=== PATIENT | male | born 1980 | race Caucasian/White ===

== ENCOUNTER 2019-10-10 16:28 | Outpatient (CLI) | payer BC | END 2019-10-10 16:29 | disposition critical access hospital (66) | LOC: EMS 16:28 | PROVIDERS: ATTEND Surgery | DX: R10.13 Epigastric pain (principal); R11.10 Vomiting, unspecified | CPT/HCPCS: A0425; A0427 ==

== ENCOUNTER 2019-10-10 16:48 | Emergency (ER) | payer BC ==
[2019-10-10] MEDS ORDERED: HALOPERIDOL 5 MG/ML VIAL IVP STA (17:06)
[2019-10-10] MEDS ORDERED: SODIUM CHLORIDE 0.9% 1,000 ML IV ONE (17:06)
[2019-10-10] MEDS ORDERED: PANTOPRAZOLE 40 MG VIAL IVP STA (17:07)
--- NOTE | 2019-10-10 17:10 | ED Physician Documentation ---
PD HPI ABD PAIN - Stated complaint Stated Complaint: ABD PX - Chief complaint Chief Complaint: Abd Pain - History obtained from History obtained from: Patient, EMS - History of Present Illness Timing - onset: How many hours ago (2) Timing - duration: Hours (2) Timing - details: Abrupt onset Pain level max: 8 Pain level now: 8 Quality: Aching, Pain Location: Epigastric Radiation: No: Chest, , Lower back, Left flank, Left shoulder, Right flank, Right shoulder, Upper back Improved by: Vomiting Worsened by: Eating Associated symptoms: Nausea, Vomiting, Diarrhea (States has had diarrhea for a few days). No: Fever, Hematemesis, Constipation, Melena, Hematochezia, Dysuria, Hematuria, Chest pain Similar symptoms before: Diagnosis (Patient states that he has had ongoing abdominal pain and vomiting issues, initially it was thought to be secondary to his appendix or gallbladder. Both of these were removed in 2018. He then stopped drinking approximately 6 months ago which does seem to have helped the problem. He does use marijuana several times per week. No fevers. No recent travel. No recent antibiotics. He is diabetic. Blood sugar was 200 with EMS) Recently seen: Not recently seen Review of Systems Constitutional: denies: Fever, Chills Throat: denies: Sore throat Cardiac: denies: Chest pain / pressure Respiratory: denies: Cough Skin: denies: Rash Musculoskeletal: denies: Neck pain, Back pain Neurologic: denies: Headache PD PAST MEDICAL HISTORY - Past Medical History Cardiovascular: Hypertension, High cholesterol Respiratory: None Neuro: None Endocrine/Autoimmune: Type 2 diabetes GI: GERD : None Psych: Depression, Anxiety, Post traumatic stress disorder Musculoskeletal: None Derm: None - Past Surgical History Past Surgical History: Yes General: Cholecystectomy, Appendectomy - Present Medications Home Medications: Ambulatory Orders Medication Instructions Recorded Confirmed Cholecalciferol [Vitamin D3] 2,000 unit ORAL DAILY 10/10/19 10/10/19 FLUoxetine [PROzac] 50 mg ORAL DAILY 10/10/19 10/10/19 Insulin Glargine [Lantus Solostar] 50 units SQ DAILY 10/10/19 10/10/19 - Allergies Allergies/Adverse Reactions: Allergies Allergy/AdvReac Type Severity Reaction Status Date / Time No Known Drug Allergies Allergy Verified 10/10/19 16:51 - Social History Does the pt smoke?: No Smoking Status: Former smoker Does the pt drink ETOH?: No Does the pt have substance abuse?: Yes Substance Use and Type: Marijuana - Immunizations Immunizations are current?: Yes - POLST Patient has POLST: No PD ED PE NORMAL - Vitals Vital signs reviewed: Yes - General General: Alert and oriented X 3, No acute distress, Well developed/nourished - HEENT HEENT: PERRL, Moist mucous membranes - Neck Neck: Supple, no meningeal sign - Cardiac Cardiac: RRR, Strong equal pulses - Respiratory Respiratory: No respiratory distress, Clear bilaterally - Abdomen Abdomen: Soft, Non distended, Other (Tender to palpation epigastric without peritoneal signs) - Back Back: No CVA TTP, No spinal TTP - Derm Derm: Warm and dry - Extremities Extremities: No edema - Neuro Neuro: Alert and oriented X 3 - Psych Psych: Normal mood, Normal affect Results - Vitals Vitals: Vital Signs - 24 hr 10/10/19 10/10/19 10/10/19 16:55 17:01 18:10 Temperature 36.7 C Heart Rate 105 H 109 H 101 H Respiratory 14 18 20 Rate Blood Pressure 150/91 H 137/107 H 136/97 H O2 Saturation 100 100 100 Oxygen O2 Source Room air - Labs Labs: Laboratory Tests 10/10/19 10/10/19 10/10/19 17:15 17:15 17:15 WBC 10.6 RBC 5.65 Hgb 16.1 Hct 46.7 MCV 82.7 MCH 28.5 MCHC 34.5 RDW 11.9 L Plt Count 386 MPV 9.3 Neut # (Auto) 9.1 H Lymph # (Auto) 0.9 L [place] # (Auto) 0.5 Eos # (Auto) 0.0 Baso # (Auto) 0.0 Absolute Nucleated RBC 0.00 Nucleated RBC % 0.0 VBG pH 7.405 VBG pCO2 41.5 VBG pO2 23.2 L VBG HCO3 25.4 VBG Total CO2 26.7 VBG O2 Saturation 45.3 L VBG Base Excess 0.6 Sodium 137 Potassium 3.1 L Chloride 96 L Carbon Dioxide 24 Anion Gap 17.0 H BUN 10 Creatinine 0.9 Estimated GFR (MDRD) 94 Glucose 225 H Calcium 8.9 Total Bilirubin 1.4 H AST 28 ALT 27 Alkaline Phosphatase 100 Total Protein 8.3 H Albumin 4.5 Globulin 3.8 Albumin/Globulin Ratio 1.2 Lipase 32 Serum Ketones NEGATIVE PD MEDICAL DECISION MAKING - ED course Complexity details: reviewed results, re-evaluated patient, considered differential, d/w patient ED course: Patient given Haldol and IV fluids. Symptoms resolved. Tolerating p.o. without difficulty. Likely cannabinoid induced hyperemesis. Counseled to stop using marijuana. Patient counseled regarding signs and symptoms for which I believe and urgent re-evaluation would be necessary. Patient with good understanding of and agreement to plan and is comfortable going home at this time This document was made in part using voice recognition software. While efforts are made to proofread this document, sound alike and grammatical errors may occur. Departure - Departure Disposition: 01 Home, Self Care Clinical Impression: Cannabinoid hyperemesis syndrome Vomiting Qualifiers: Vomiting type: unspecified Vomiting Intractability: non-intractable Nausea presence: without nausea Qualified Code(s): R11.11 - Vomiting without nausea Condition: Good Instructions: ED Nausea Vomiting Follow-Up: your,doctor in 1 week [Other] Comments: Please follow-up with your doctor for further care. This could be due to a syndrome called cannabinoid induced hyperemesis. You should refrain from using any marijuana for at least the next 4 to 6 weeks and see if this helps your symptoms. Discharge Date/Time: 10/10/19 18:21
[2019-10-10 17:25] LABS: BASOPHILS % (AUTO) 0.3 %; EOSINOPHILS % (AUTO) 0.3 %; HGB - HEMOGLOBIN 16.1 g/dL (14.0-18.0); LYMPHOCYTES # (AUTO) 0.9 10^3/uL (1.5-3.5); LYMPHOCYTES % (AUTO) 8.7 %; MEAN CORPUSCULAR HEMOGLOBIN 28.5 pg (27.0-31.0); MEAN CORPUSCULAR HGB CONC 34.5 g/dL (32.0-36.0); MEAN CORPUSCULAR VOLUME 82.7 fL (80.0-94.0); MEAN PLATELET VOLUME 9.3 fL (7.4-11.4); MONOCYTES # (AUTO) 0.5 10^3/uL (0.0-1.0); MONOCYTES % (AUTO) 4.5 %; NEUTROPHILS # (AUTO) 9.1 10^3/uL (1.5-6.6); NEUTROPHILS % (AUTO) 85.6 %; PLT - PLATELET COUNT 386 10^3/uL (130-450); RED BLOOD COUNT 5.65 10^6/uL (4.70-6.10); RED CELL DISTRIBUTION WIDTH 11.9 % (12.0-15.0); WHITE BLOOD COUNT 10.6 x10^3/uL (4.8-10.8)
[2019-10-10 17:28] LABS: VBG BASE EXCESS 0.6 mmol/L (-2 - +2); VBG PCO2 41.5 mmHg (41-51); VBG PH 7.405 (7.31-7.41); VBG PO2 23.2 mmHg (25-47); VBG TOTAL CO2 26.7 mmol/L (24-29)
[2019-10-10 17:38] LABS: ALBUMIN 4.5 g/dL (3.2-5.5); ALBUMIN/GLOBULIN RATIO 1.2 (1.0-2.2); ALKALINE PHOSPHATASE 100 IU/L (42-121); ALT ALANINE AMINOTRANSFERASE 27 IU/L (10-60); AST ASPARTATE AMINOTRANSFERASE 28 IU/L (10-42); BILIRUBIN,TOTAL 1.4 mg/dL (0.2-1.0); BUN - BLOOD UREA NITROGEN 10 mg/dL (6-20); CALCIUM 8.9 mg/dL (8.5-10.3); CARBON DIOXIDE - CO2 24 mmol/L (21-32); CHLORIDE 96 mmol/L (101-111); CREATININE 0.9 mg/dL (0.6-1.2); GFR - MDRD 94 (>89); GLUCOSE 225 mg/dL (70-100); LIPASE 32 U/L (22-51); SODIUM 137 mmol/L (135-145); TOTAL PROTEIN 8.3 g/dL (6.7-8.2)
[2019-10-10 17:45] LABS: KETONES, SERUM (ACETEST) NEGATIVE (NEGATIVE)
[2019-10-10 18:11] VITALS: BP 136/97
== END 2019-10-10 18:21 | disposition home or self-care (01) ==
LOC: ED 16:48
DX: F12.188 Cannabis abuse with other cannabis-induced disorder (principal); R11.11 Vomiting without nausea; I10 Essential (primary) hypertension; E11.9 Type 2 diabetes mellitus without complications; Z79.4 Long term (current) use of insulin; Z87.891 Personal history of nicotine dependence
CPT/HCPCS: 36415; 80053; 82009; 82803; 83690; 85025; 96361; 96374; 99284

== ENCOUNTER 2020-01-10 17:11 | Outpatient (CLI) | payer BC | END 2020-01-10 17:12 | disposition critical access hospital (66) | LOC: EMS 17:11 | PROVIDERS: ATTEND Surgery | DX: R10.30 Lower abdominal pain, unspecified (principal); R11.2 Nausea with vomiting, unspecified; R19.7 Diarrhea, unspecified | CPT/HCPCS: A0425; A0427 ==

== ENCOUNTER 2020-01-10 17:29 | Emergency (ER) | payer BC ==
[2020-01-10] MEDS ORDERED: SODIUM CHLORIDE 0.9% 1,000 ML IV ONE (17:41)
[2020-01-10] MEDS ORDERED: diphenhydrAMINE INJ 50 MG/ML VIAL IVP STA (17:41)
[2020-01-10] MEDS ORDERED: HALOPERIDOL 5 MG/ML VIAL IVP STA (17:41)
--- NOTE | 2020-01-10 17:46 | ED Physician Documentation ---
PD HPI ABD PAIN - Stated complaint Stated Complaint: ABD PAIN - Chief complaint Chief Complaint: Abd Pain - History obtained from History obtained from: Patient - History of Present Illness Timing - onset: Today Timing - duration: Days (1) Timing - details: Gradual onset Pain level max: 8 Pain level now: 8 Quality: Aching, Pain Location: Epigastric Radiation: No: Chest, , Lower back, Left flank, Left shoulder, Right flank, Right shoulder, Upper back Improved by: Other (Nothing) Worsened by: Eating Associated symptoms: Nausea, Vomiting. No: Fever, Hematemesis, Diarrhea, Constipation, Melena, Hematochezia, Dysuria Recently seen: Not recently seen - Additional information Additional information: Patient states that he uses marijuana several times a day. No fever. No recent travel. No recent antibiotics. Review of Systems Ten Systems: 10 systems reviewed and negative Constitutional: denies: Fever, Chills Respiratory: denies: Cough GI: denies: Hematemesis, Bloody / black stool Skin: denies: Rash Musculoskeletal: denies: Neck pain, Back pain Neurologic: denies: Headache PD PAST MEDICAL HISTORY - Past Medical History Cardiovascular: Hypertension, High cholesterol Respiratory: None Neuro: None Endocrine/Autoimmune: Type 2 diabetes GI: GERD : None Psych: Depression, Anxiety, Post traumatic stress disorder Musculoskeletal: None Derm: None - Past Surgical History Past Surgical History: Yes General: Cholecystectomy, Appendectomy - Present Medications Home Medications: Ambulatory Orders Medication Instructions Recorded Confirmed Cholecalciferol [Vitamin D3] 2,000 unit ORAL DAILY 10/10/19 10/10/19 FLUoxetine [PROzac] 50 mg ORAL DAILY 10/10/19 10/10/19 Insulin Glargine [Lantus Solostar] 50 units SQ DAILY 10/10/19 10/10/19 Promethazine [Phenergan] 25 mg PO Q6H PRN #10 tab 01/10/20 - Allergies Allergies/Adverse Reactions: Allergies Allergy/AdvReac Type Severity Reaction Status Date / Time No Known Drug Allergies Allergy Verified 10/10/19 16:51 - Social History Does the pt smoke?: No Smoking Status: Former smoker Does the pt drink ETOH?: No Does the pt have substance abuse?: Yes - Immunizations Immunizations are current?: Yes - POLST Patient has POLST: No PD ED PE NORMAL - Vitals Vital signs reviewed: Yes - General General: Alert and oriented X 3, No acute distress, Well developed/nourished - HEENT HEENT: Moist mucous membranes - Neck Neck: Supple, no meningeal sign - Cardiac Cardiac: RRR, Strong equal pulses - Respiratory Respiratory: No respiratory distress, Clear bilaterally - Abdomen Abdomen: Soft, Non tender, Non distended - Back Back: No CVA TTP - Derm Derm: Warm and dry - Extremities Extremities: No edema - Neuro Neuro: Alert and oriented X 3 - Psych Psych: Normal mood, Normal affect Results - Vitals Vitals: Vital Signs - 24 hr 01/10/20 01/10/20 01/10/20 17:34 18:55 19:13 Temperature 36.1 C L Heart Rate 108 H 96 88 Respiratory 18 16 16 Rate Blood Pressure 137/105 H 142/93 H 143/88 H O2 Saturation 100 96 98 Oxygen O2 Source Room air - Labs Labs: Laboratory Tests 01/10/20 01/10/20 01/10/20 17:35 17:35 18:44 WBC 13.1 H RBC 5.30 Hgb 14.6 Hct 43.6 MCV 82.3 MCH 27.5 MCHC 33.5 RDW 12.6 Plt Count 408 MPV 9.4 Neut # (Auto) 9.9 H Lymph # (Auto) 2.1 [place] # (Auto) 0.7 Eos # (Auto) 0.2 Baso # (Auto) 0.1 Absolute Nucleated RBC 0.00 Nucleated RBC % 0.0 Sodium 134 L Potassium 2.9 L Chloride 95 L Carbon Dioxide 26 Anion Gap 13.0 BUN 11 Creatinine 0.7 Estimated GFR (MDRD) 126 Glucose 209 H Calcium 8.7 Total Bilirubin 1.0 AST 26 ALT 22 Alkaline Phosphatase 106 Total Protein 7.9 Albumin 4.1 Globulin 3.8 Albumin/Globulin Ratio 1.1 Lipase 162 H Urine Color YELLOW Urine Clarity CLEAR Urine pH 7.5 Ur Specific [place] 1.015 Urine Protein NEGATIVE Urine Glucose (UA) NEGATIVE Urine Ketones 40 H Urine Occult Blood NEGATIVE Urine Nitrite NEGATIVE Urine Bilirubin NEGATIVE Urine Urobilinogen 0.2 (NORMAL) Ur Leukocyte Esterase NEGATIVE Ur Microscopic Review NOT INDICATED Urine Culture Comments NOT INDICATED PD MEDICAL DECISION MAKING - ED course Complexity details: reviewed results, re-evaluated patient, considered differential, d/w patient ED course: Patient symptoms resolved with Haldol, Benadryl, and IV fluids. Feels much better. Mild elevation of his lipase. Does not drink alcohol. Seems to be a case of cannabinoid induced hyperemesis. Will prescribe Phenergan for home. Counseled to avoid cannabis. Patient is well-appearing, nontoxic. Afebrile. No DKA. Patient counseled regarding signs and symptoms for which I believe and urgent re-evaluation would be necessary. Patient with good understanding of and agreement to plan and is comfortable going home at this time This document was made in part using voice recognition software. While efforts are made to proofread this document, sound alike and grammatical errors may o ccur. Departure - Departure Disposition: Home, Self Care Clinical Impression: Cannabinoid hyperemesis syndrome Vomiting Qualifiers: Vomiting type: unspecified Vomiting Intractability: non-intractable Nausea presence: with nausea Qualified Code(s): R11.2 - Nausea with vomiting, unspecified Condition: Good Instructions: ED Abdominal Pain Unkn Cause, ED Nausea Vomiting Follow-Up: Your,doctor in 1 week [Other] Prescriptions: Promethazine [Phenergan] 25 mg PO Q6H PRN #10 tab PRN Reason: Nausea / Vomiting Comments: Drink plenty of fluids at home. Return if you worsen. You should try refraining from marijuana use. Do not drive or operate heavy machinery while taking the Phenergan. Discharge Date/Time: 01/10/20 19:13
[2020-01-10 17:48] LABS: BASOPHILS # (AUTO) 0.1 10^3/uL (0.0-0.1); BASOPHILS % (AUTO) 0.4 %; EOSINOPHILS # (AUTO) 0.2 10^3/uL (0.0-0.7); EOSINOPHILS % (AUTO) 1.3 %; HGB - HEMOGLOBIN 14.6 g/dL (14.0-18.0); LYMPHOCYTES # (AUTO) 2.1 10^3/uL (1.5-3.5); LYMPHOCYTES % (AUTO) 16.4 %; MEAN CORPUSCULAR HEMOGLOBIN 27.5 pg (27.0-31.0); MEAN CORPUSCULAR HGB CONC 33.5 g/dL (32.0-36.0); MEAN CORPUSCULAR VOLUME 82.3 fL (80.0-94.0); MEAN PLATELET VOLUME 9.4 fL (7.4-11.4); MONOCYTES # (AUTO) 0.7 10^3/uL (0.0-1.0); MONOCYTES % (AUTO) 5.4 %; NEUTROPHILS # (AUTO) 9.9 10^3/uL (1.5-6.6); NEUTROPHILS % (AUTO) 75.9 %; PLT - PLATELET COUNT 408 10^3/uL (130-450); RED CELL DISTRIBUTION WIDTH 12.6 % (12.0-15.0); WHITE BLOOD COUNT 13.1 x10^3/uL (4.8-10.8)
[2020-01-10 18:01] LABS: ALBUMIN 4.1 g/dL (3.2-5.5); ALBUMIN/GLOBULIN RATIO 1.1 (1.0-2.2); CALCIUM 8.7 mg/dL (8.5-10.3); CREATININE 0.7 mg/dL (0.6-1.2); TOTAL PROTEIN 7.9 g/dL (6.7-8.2)
[2020-01-10 18:54] LABS: BILIRUBIN,URINE NEGATIVE (NEGATIVE); GLUCOSE, URINE (UA) NEGATIVE (NEGATIVE); KETONES,URINE (UA) 40 mg/dL (NEGATIVE); LEUKOCYTE ESTERASE, URINE NEGATIVE (NEGATIVE); NITRITE,URINE NEGATIVE (NEGATIVE); OCCULT BLOOD,URINE NEGATIVE (NEGATIVE); PH,URINE 7.5 PH (5.0-7.5); PROTEIN,URINE NEGATIVE (NEGATIVE); UROBILINOGEN,URINE 0.2 (NORMAL) E.U./dL (NORMAL)
[2020-01-10 18:58] LABS: CLARITY,URINE CLEAR (CLEAR)
[2020-01-10 19:17] VITALS: BP 143/88
== END 2020-01-10 19:13 | disposition home or self-care (01) ==
LOC: EDUNIT# → ED 17:29
DX: R11.2 Nausea with vomiting, unspecified (principal); I10 Essential (primary) hypertension; E11.9 Type 2 diabetes mellitus without complications; Z87.891 Personal history of nicotine dependence
CPT/HCPCS: 36415; 80053; 81003; 83690; 85025; 96361; 96374; 99283; 99284; J1200; 81001; 87086

== ENCOUNTER 2020-01-13 11:07 | Outpatient (CLI) | payer BC | END 2020-01-13 11:08 | disposition critical access hospital (66) | LOC: EMS 11:07 | PROVIDERS: ATTEND Surgery | DX: R10.32 Left lower quadrant pain (principal); R11.2 Nausea with vomiting, unspecified; R61 Generalized hyperhidrosis | CPT/HCPCS: A0425; A0427 ==

== ENCOUNTER 2020-01-13 11:26 | Emergency (ER) | payer BC ==
[2020-01-13] MEDS ORDERED: HYDROmorphone 1 MG/ML CARPUJECT IVP STA (11:41)
[2020-01-13] MEDS ORDERED: PROMETHAZINE INJ 25 MG in SODIUM CHLORIDE 0.9% 50 ML IV STA (11:41)
[2020-01-13] MEDS ORDERED: IOVERSOL 320 100 ML VIAL IVP ONE ×2 (11:45→13:05)
[2020-01-13] MEDS ORDERED: SODIUM CHLORIDE 0.9% 1,000 ML IV ONE ×2 (11:53→13:08)
--- NOTE | 2020-01-13 11:55 | ED Physician Documentation ---
PD HPI ABD PAIN - Stated complaint Stated Complaint: ABD PAIN - Chief complaint Chief Complaint: Abd Pain - History obtained from History obtained from: Patient - History of Present Illness Timing - onset: How many hours ago (1-2) Timing - details: Abrupt onset Pain level max: 9 Pain level now: 9 Quality: Sharp, Stabbing Location: RUQ, Epigastric, LUQ Associated symptoms: Nausea, Vomiting. No: Diarrhea, Constipation, Melena, Hematochezia, Dysuria, Hematuria, Chest pain Similar symptoms before: No diagnosis (associated with cannibus use.) Recently seen: Emergency Dept - Additional information Additional information: pt BIB EMS for acute onset abdominal pain that started approximately 1 hr ago. The pt states this is pain is different than what he was seen for a couple days ago here at the ER. the patient admits to smoking marijuana several times today. He is only smoking once today. He does admit to smoking maybe yesterday. His last food intake was last night. Review of Systems Constitutional: denies: Fever, Chills Eyes: reports: Reviewed and negative Ears: reports: Reviewed and negative Nose: reports: Reviewed and negative Cardiac: reports: Reviewed and negative Respiratory: reports: Reviewed and negative GI: reports: Abdominal Pain, Nausea, Vomiting. denies: Abdominal Swelling, Constipation, Diarrhea, Hematemesis, Bloody / black stool : denies: Dysuria, Hematuria Musculoskeletal: reports: Reviewed and negative Neurologic: reports: Reviewed and negative PD PAST MEDICAL HISTORY - Past Medical History Cardiovascular: Hypertension, High cholesterol Respiratory: None Neuro: None Endocrine/Autoimmune: Type 2 diabetes GI: GERD : None Psych: Depression, Anxiety, Post traumatic stress disorder Musculoskeletal: None Derm: None - Past Surgical History Past Surgical History: Yes General: Cholecystectomy, Appendectomy - Present Medications Home Medications: Ambulatory Orders Medication Instructions Recorded Confirmed Cholecalciferol [Vitamin D3] 2,000 unit ORAL DAILY 10/10/19 10/10/19 FLUoxetine [PROzac] 50 mg ORAL DAILY 10/10/19 10/10/19 Insulin Glargine [Lantus Solostar] 50 units SQ DAILY 10/10/19 10/10/19 Promethazine [Phenergan] 25 mg PO Q6H PRN #10 tab 01/10/20 - Allergies Allergies/Adverse Reactions: Allergies Allergy/AdvReac Type Severity Reaction Status Date / Time No Known Drug Allergies Allergy Verified 01/13/20 11:37 - Social History Does the pt smoke?: No Smoking Status: Former smoker Does the pt drink ETOH?: No Does the pt have substance abuse?: Yes - Immunizations Immunizations are current?: Yes - POLST Patient has POLST: No PD ED PE NORMAL - General General: Alert and oriented X 3, Well developed/nourished - HEENT HEENT: Atraumatic, PERRL, EOMI, Moist mucous membranes - Neck Neck: Supple, no meningeal sign, No adenopathy - Cardiac Cardiac: RRR, No murmur - Respiratory Respiratory: No respiratory distress, Clear bilaterally - Male Male : Deferred - Back Back: No CVA TTP - Derm Derm: Normal color, No rash - Neuro Neuro: Alert and oriented X 3 Eye Opening: Spontaneous Motor: Obeys Commands Verbal: Oriented GCS Score: 15 PD ED PE EXPANDED - Abdomen Abdomen: Decreased BS, Tender to palpation (RUQ, LUQ, epigastric ), Guarding, RUQ, Epigastric, LUQ. No: Hepatomegaly - Derm Derm: Diaphoretic Results - Vitals Vitals: Vital Signs - 24 hr 01/13/20 01/13/20 11:27 13:36 Temperature 35.9 C L Heart Rate 89 99 Respiratory 28 H 24 Rate Blood Pressure 153/88 H 130/93 H O2 Saturation 100 95 Oxygen O2 Source Room air - EKG (time done) No standard instances Rate: Rate (enter#) (86) Rhythm: NSR [place]: Normal Intervals: Normal CT QRS: Normal Ischemia: Normal ST segments Computer interpretation: Agree with computer - Labs Labs: Laboratory Tests 01/13/20 01/13/20 01/13/20 12:03 12:03 12:03 WBC 15.1 H RBC 5.56 Hgb 15.9 Hct 46.9 MCV 84.4 MCH 28.6 MCHC 33.9 RDW 12.8 Plt Count 418 MPV 9.2 Neut # (Auto) 12.0 H Lymph # (Auto) 2.0 [place] # (Auto) 0.8 Eos # (Auto) 0.1 Baso # (Auto) 0.1 Absolute Nucleated RBC 0.00 Nucleated RBC % 0.0 PT 11.1 INR 1.0 Sodium 138 Potassium 3.2 L Chloride 102 Carbon Dioxide 23 Anion Gap 13.0 BUN 10 Creatinine 0.8 Estimated GFR (MDRD) 108 Glucose 202 H Lactic Acid Calcium 9.2 Total Bilirubin 0.8 AST 30 ALT 23 Alkaline Phosphatase 99 Total Protein 8.2 Albumin 4.4 Globulin 3.8 Albumin/Globulin Ratio 1.2 Amylase 108 H Lipase 41 Urine Color Urine Clarity Urine pH Ur Specific [place] Urine Protein Urine Glucose (UA) Urine Ketones Urine Occult Blood Urine Nitrite Urine Bilirubin Urine Urobilinogen Ur Leukocyte Esterase Ur Microscopic Review Urine Culture Comments Urine Opiates Screen Ur Oxycodone Screen Urine Methadone Screen Ur Propoxyphene Screen Ur Barbiturates Screen Ur Tricyclics Screen Ur Phencyclidine Scrn Ur Amphetamine Screen U Methamphetamines Scrn U Benzodiazepines Scrn Urine Cocaine Screen U Cannabinoids Screen 01/13/20 01/13/20 01/13/20 12:03 13:54 14:15 WBC RBC Hgb Hct MCV MCH MCHC RDW Plt Count MPV Neut # (Auto) Lymph # (Auto) [place] # (Auto) Eos # (Auto) Baso # (Auto) Absolute Nucleated RBC Nucleated RBC % PT INR Sodium Potassium Chloride Carbon Dioxide Anion Gap BUN Creatinine Estimated GFR (MDRD) Glucose Lactic Acid 3.7 H* 1.5 Calcium Total Bilirubin AST ALT Alkaline Phosphatase Total Protein Albumin Globulin Albumin/Globulin Ratio Amylase Lipase Urine Color YELLOW Urine Clarity CLEAR Urine pH 8.0 H Ur Specific [place] 1.010 Urine Protein NEGATIVE Urine Glucose (UA) NEGATIVE Urine Ketones 15 H Urine Occult Blood NEGATIVE Urine Nitrite NEGATIVE Urine Bilirubin NEGATIVE Urine Urobilinogen 0.2 (NORMAL) Ur Leukocyte Esterase NEGATIVE Ur Microscopic Review NOT INDICATED Urine Culture Comments NOT INDICATED Urine Opiates Screen POSITIVE H Ur Oxycodone Screen POSITIVE H Urine Methadone Screen NEGATIVE Ur Propoxyphene Screen NEGATIVE Ur Barbiturates Screen NEGATIVE Ur Tricyclics Screen NEGATIVE Ur Phencyclidine Scrn NEGATIVE Ur Amphetamine Screen NEGATIVE U Methamphetamines Scrn NEGATIVE U Benzodiazepines Scrn POSITIVE H Urine Cocaine Screen NEGATIVE U Cannabinoids Screen POSITIVE H PD MEDICAL DECISION MAKING - ED course Complexity details: reviewed old records, reviewed results, re-evaluated patient, considered differential, d/w patient ED course: After the initial lactic acid came back at 5.7, the patient was hydrated with 2 L of normal saline and his lactic acid was drawn an hour and a half later at which point the lactic acid came down to 1.5. Patient does have a slight elevation of his white blood cells of 15.1. Patient denies any fevers or chills over the last [address] result came back as normal abdominal pelvic CT scan. Have encouraged patient to follow-up with his primary care physician in regards to the slight bump in white blood cells.I encouraged the patient to get the prescription that was prescribed to him 4 days ago by the ER physician for antinausea medication filled today. Departure - Departure Disposition: Home, Self Care Clinical Impression: Cannabinoid hyperemesis syndrome Abdominal pain Qualifiers: Abdominal location: generalized Qualified Code(s): R10.84 - Generalized abdominal pain Condition: Good Instructions: ED Nausea Vomiting Comments: You need to get the medication filled that you are prescribed on Saturday from the ER doctor. Like I discussed with you before, when you start feeling the abdominal pain/nausea take the anti-nausea pill right away to see if he can avoid getting into the vicious cycle throwing up, and having abdominal pain and and having to come to the ER. Also try to stay well-hydrated, he can drink Gatorade diluted with water 50-50 to keep her electrolytes balanced. Again I encourage you to cut back on her cannabis use as this was most likely contributing factor to your nausea and vomiting at this point.I would like you to follow-up with your primary care physician within a week. To get a lab work blood work done to check your white blood cell count to make sure the trending downward.
[2020-01-13 12:14] LABS: BASOPHILS # (AUTO) 0.1 10^3/uL (0.0-0.1); BASOPHILS % (AUTO) 0.4 %; EOSINOPHILS # (AUTO) 0.1 10^3/uL (0.0-0.7); EOSINOPHILS % (AUTO) 0.7 %; HGB - HEMOGLOBIN 15.9 g/dL (14.0-18.0); LYMPHOCYTES % (AUTO) 13.1 %; MEAN CORPUSCULAR HEMOGLOBIN 28.6 pg (27.0-31.0); MEAN CORPUSCULAR HGB CONC 33.9 g/dL (32.0-36.0); MEAN CORPUSCULAR VOLUME 84.4 fL (80.0-94.0); MEAN PLATELET VOLUME 9.2 fL (7.4-11.4); MONOCYTES # (AUTO) 0.8 10^3/uL (0.0-1.0); MONOCYTES % (AUTO) 5.4 %; NEUTROPHILS % (AUTO) 79.7 %; PLT - PLATELET COUNT 418 10^3/uL (130-450); RED BLOOD COUNT 5.56 10^6/uL (4.70-6.10); RED CELL DISTRIBUTION WIDTH 12.8 % (12.0-15.0); WHITE BLOOD COUNT 15.1 x10^3/uL (4.8-10.8)
[2020-01-13 12:26] LABS: ALBUMIN 4.4 g/dL (3.2-5.5); ALBUMIN/GLOBULIN RATIO 1.2 (1.0-2.2); BILIRUBIN,TOTAL 0.8 mg/dL (0.2-1.0); CALCIUM 9.2 mg/dL (8.5-10.3); CREATININE 0.8 mg/dL (0.6-1.2); TOTAL PROTEIN 8.2 g/dL (6.7-8.2)
[2020-01-13 12:38] LABS: PT - PROTHROMBIN TIME 11.1 secs (9.9-12.6)
--- NOTE | 2020-01-13 12:57 | CT Report ---
Reason: ABDOMINAL PAIN Procedure Date: 01/13/2020 Accession Number: [id number] / [id number] Procedure: CT - Abdomen/Pelvis W CPT Code: Final Report FULL RESULT: EXAM: CT ABDOMEN AND PELVIS WITH IV CONTRAST EXAM DATE: 01/13/2020. CLINICAL HISTORY: Abdominal pain. Nausea and vomiting. COMPARISONS: None. TECHNIQUE: Routine helical CT imaging was performed through the abdomen and pelvis. IV contrast: 100 cc of Optiray 320. Enteric contrast: None. Reconstructions: Coronal and sagittal. In accordance with CT protocol optimization, one or more of the following dose reduction techniques were utilized for this exam: automated exposure control, adjustment of mA and/or KV based on patient size, or use of iterative reconstructive technique. FINDINGS: Lung Bases: Minimal atelectasis or scar of the lingula. No pleural or pericardial effusion. Liver: Normal. No masses. Gallbladder/Bile Ducts: Cholecystectomy. No bile duct dilatation. Spleen: Normal. Pancreas: Normal. Adrenal Glands: Normal. Kidneys: 17 mm left renal cyst averaging 7.9 HU. No further workup is necessary. Accessory artery to the lower pole of the right kidney. No hydronephrosis, calculi, or other abnormality. Peritoneal Cavity/Bowel: No bowel dilatation.. No free fluid, free air or adenopathy. No masses or acute inflammatory process. Pelvic Organs: The urinary bladder appears normal. No adenopathy or fluid collections. Vasculature: Normal. Bones: Mild degenerative changes of the spine. Other: None. IMPRESSION: No acute abnormality. RADIA
[2020-01-13 14:21] VITALS: BP 130/93
[2020-01-13 14:27] LABS: MUDS CUTOFF CONCENTRATIONS CUTOFF CONC BELOW:
[2020-01-13 14:29] LABS: BILIRUBIN,URINE NEGATIVE (NEGATIVE); CLARITY,URINE CLEAR (CLEAR); GLUCOSE, URINE (UA) NEGATIVE (NEGATIVE); KETONES,URINE (UA) 15 mg/dL (NEGATIVE); LEUKOCYTE ESTERASE, URINE NEGATIVE (NEGATIVE); NITRITE,URINE NEGATIVE (NEGATIVE); OCCULT BLOOD,URINE NEGATIVE (NEGATIVE); PROTEIN,URINE NEGATIVE (NEGATIVE); UROBILINOGEN,URINE 0.2 (NORMAL) E.U./dL (NORMAL)
[2020-01-13 14:38] LABS: AMPHETAMINE SCREEN,URINE NEGATIVE (NEGATIVE); BENZODIAZEPINES SCREEN, URINE POSITIVE (NEGATIVE); COCAINE SCREEN URINE NEGATIVE (NEGATIVE); METHADONE SCREEN, URINE NEGATIVE (NEGATIVE); METHAMPHETAMINES SCREEN, URINE NEGATIVE (NEGATIVE); OPIATE SCREEN, URINE POSITIVE (NEGATIVE); OXYCODONE SCREEN, URINE POSITIVE (NEGATIVE); PROPOXYPHENE SCREEN, URINE NEGATIVE (NEGATIVE); TRICYCLIC ANTIDEPRESSANT,URINE NEGATIVE (NEGATIVE)
== END 2020-01-13 15:04 | disposition home or self-care (01) ==
LOC: EDUNIT# → ED 11:26
DX: T40.7X1A Poisoning by cannabis (derivatives), accidental (unintentional), initial encounter (principal); R11.2 Nausea with vomiting, unspecified; F12.988 Cannabis use, unspecified with other cannabis-induced disorder; R10.84 Generalized abdominal pain; R74.0 Nonspecific elevation of levels of transaminase and lactic acid dehydrogenase [LDH]; D72.829 Elevated white blood cell count, unspecified; I10 Essential (primary) hypertension; E11.9 Type 2 diabetes mellitus without complications; Z79.4 Long term (current) use of insulin; Z87.891 Personal history of nicotine dependence; Z90.49 Acquired absence of other specified parts of digestive tract
CPT/HCPCS: 36415; 74177; 80053; 81003; 82150; 83605; 83690; 85025; 85610; 93005; 96361; 96374; 99284; J1170; Q9967; 80306; 81001; 87086

== ENCOUNTER 2020-01-14 07:54 | Outpatient (CLI) | payer BC | END 2020-01-14 07:55 | disposition critical access hospital (66) | LOC: EMS 07:54 | PROVIDERS: ATTEND Surgery | DX: R10.9 Unspecified abdominal pain (principal); R11.2 Nausea with vomiting, unspecified; R41.9 Unspecified symptoms and signs involving cognitive functions and awareness | CPT/HCPCS: A0425; A0427 ==

== ENCOUNTER 2020-01-14 08:12 | Emergency (ER) | payer BC ==
[2020-01-14] MEDS ORDERED: KETOROLAC 30 MG/ML VIAL IVP STA (08:24)
[2020-01-14] MEDS ORDERED: SODIUM CHLORIDE 0.9% 1,000 ML IV ONE ×2 (08:24→11:18)
[2020-01-14] MEDS ORDERED: HALOPERIDOL 5 MG/ML VIAL IVP ONE (08:24)
[2020-01-14] MEDS ORDERED: LORazepam 2 MG/ML VIAL IVP STA (08:59)
[2020-01-14 09:31] LABS: BASOPHILS % (AUTO) 0.3 %; EOSINOPHILS # (AUTO) 0.1 10^3/uL (0.0-0.7); EOSINOPHILS % (AUTO) 0.8 %; HGB - HEMOGLOBIN 14.3 g/dL (14.0-18.0); LYMPHOCYTES # (AUTO) 1.1 10^3/uL (1.5-3.5); LYMPHOCYTES % (AUTO) 10.5 %; MEAN CORPUSCULAR HEMOGLOBIN 27.9 pg (27.0-31.0); MEAN CORPUSCULAR HGB CONC 33.6 g/dL (32.0-36.0); MEAN CORPUSCULAR VOLUME 82.8 fL (80.0-94.0); MEAN PLATELET VOLUME 9.3 fL (7.4-11.4); MONOCYTES # (AUTO) 0.5 10^3/uL (0.0-1.0); MONOCYTES % (AUTO) 4.6 %; NEUTROPHILS # (AUTO) 8.4 10^3/uL (1.5-6.6); NEUTROPHILS % (AUTO) 83.2 %; PLT - PLATELET COUNT 327 10^3/uL (130-450); RED BLOOD COUNT 5.13 10^6/uL (4.70-6.10); RED CELL DISTRIBUTION WIDTH 12.8 % (12.0-15.0); WHITE BLOOD COUNT 10.2 x10^3/uL (4.8-10.8)
[2020-01-14 09:47] LABS: ALBUMIN 3.8 g/dL (3.2-5.5); ALBUMIN/GLOBULIN RATIO 1.1 (1.0-2.2); BILIRUBIN,TOTAL 0.9 mg/dL (0.2-1.0); CALCIUM 8.6 mg/dL (8.5-10.3); CREATININE 0.8 mg/dL (0.6-1.2); TOTAL PROTEIN 7.2 g/dL (6.7-8.2)
[2020-01-14 11:01] VITALS: BP 159/78
--- NOTE | 2020-01-14 11:13 | ED Physician Documentation ---
PD HPI NVD - Stated complaint Stated Complaint: ABD PAIN - Chief complaint Chief Complaint: Abd Pain - History obtained from History obtained from: Patient - History of Present Illness Timing - onset: Last night Timing - duration: Hours Timing - details: Abrupt onset, Still present Associated symptoms: Abdominal pain Contributing factors: Other (canabis use) Similar symptoms before: Diagnosis (Cannabis hyperemesis) Recently seen: Emergency Dept - Additonal information Additional information: 39-year-old male has been diagnosed with cannabis hyperemesis in the over the past 4 days he has had episodic vomiting. He had improvement with Haldol on day 1 he was given Dilaudid yesterday he is come back to the emergency department today with abdominal pain nausea and vomiting. He appears to be in pain. Review of Systems Constitutional: denies: Fever Eyes: denies: Decreased vision Ears: denies: Ear pain Nose: denies: Rhinorrhea / runny nose, Congestion Throat: denies: Sore throat Cardiac: denies: Chest pain / pressure, Palpitations Respiratory: denies: Dyspnea, Cough GI: reports: Abdominal Pain, Nausea, Vomiting : denies: Dysuria, Frequency Skin: denies: Rash Musculoskeletal: denies: Neck pain, Back pain, Extremity pain Neurologic: denies: Generalized weakness, Focal weakness, Numbness PD PAST MEDICAL HISTORY - Past Medical History Past Medical History: Yes Cardiovascular: Hypertension, High cholesterol Respiratory: None Neuro: None Endocrine/Autoimmune: Type 2 diabetes GI: GERD : None HEENT: None Psych: Depression, Anxiety, Post traumatic stress disorder Musculoskeletal: None Derm: None - Past Surgical History Past Surgical History: Yes General: Cholecystectomy, Appendectomy - Present Medications Home Medications: Ambulatory Orders Medication Instructions Recorded Confirmed Cholecalciferol [Vitamin D3] 2,000 unit ORAL DAILY 10/10/19 10/10/19 FLUoxetine [PROzac] 50 mg ORAL DAILY 10/10/19 10/10/19 Insulin Glargine [Lantus Solostar] 50 units SQ DAILY 10/10/19 10/10/19 Promethazine [Phenergan] 25 mg PO Q6H PRN #10 tab 01/10/20 haloperidoL [Haldol] 2 mg PO Q8H PRN #10 tablet 01/14/20 - Allergies Allergies/Adverse Reactions: Allergies Allergy/AdvReac Type Severity Reaction Status Date / Time No Known Drug Allergies Allergy Verified 01/14/20 08:21 - Social History Does the pt smoke?: No Smoking Status: Never smoker Does the pt drink ETOH?: No Does the pt have substance abuse?: Yes - Immunizations Immunizations are current?: Yes - POLST Patient has POLST: No PD ED PE NORMAL - Vitals Vital signs reviewed: Yes (Tachycardic tachypneic and hypertensive) - General General: Alert and oriented X 3, Well developed/nourished, Other (39-year-old male moaning in pain asking for relief appears dramatic in his pain presentation.) - HEENT HEENT: Atraumatic, PERRL, EOMI, Other (Dry mucous membranes) - Neck Neck: Supple, no meningeal sign, No bony TTP - Cardiac Cardiac: No murmur, Other (Tachycardic to 120) - Respiratory Respiratory: No respiratory distress, Clear bilaterally - Abdomen Abdomen: Soft, Non tender - Back Back: No CVA TTP, No spinal TTP - Derm Derm: Normal color, Warm and dry, No rash - Extremities Extremities: No deformity, No edema, No calf tenderness / cord - Neuro Neuro: Alert and oriented X 3, integrity consultant 2-12 intact, No motor deficit, No sensory deficit, Normal speech Eye Opening: Spontaneous Motor: Obeys Commands Verbal: Oriented GCS Score: 15 - Psych Psych: Normal mood, Normal affect Results - Vitals Vitals: Vital Signs - 24 hr 01/14/20 01/14/20 01/14/20 08:21 09:07 11:00 Temperature 35.9 C L Heart Rate 126 H 103 H 77 Respiratory 26 H 16 14 Rate Blood Pressure 156/99 H 156/87 H 159/78 H O2 Saturation 100 98 96 Oxygen O2 Source Room air - Labs Labs: Laboratory Tests 01/14/20 01/14/20 01/14/20 09:25 09:25 09:25 WBC 10.2 RBC 5.13 Hgb 14.3 Hct 42.5 MCV 82.8 MCH 27.9 MCHC 33.6 RDW 12.8 Plt Count 327 MPV 9.3 Neut # (Auto) 8.4 H Lymph # (Auto) 1.1 L [place] # (Auto) 0.5 Eos # (Auto) 0.1 Baso # (Auto) 0.0 Absolute Nucleated RBC 0.00 Nucleated RBC % 0.0 Sodium 138 Potassium 3.3 L Chloride 104 Carbon Dioxide 25 Anion Gap 9.0 BUN 9 Creatinine 0.8 Estimated GFR (MDRD) 108 Glucose 197 H Lactic Acid 2.5 H Calcium 8.6 Total Bilirubin 0.9 AST 27 ALT 22 Alkaline Phosphatase 89 Total Protein 7.2 Albumin 3.8 Globulin 3.4 Albumin/Globulin Ratio 1.1 Lipase 48 PD MEDICAL DECISION MAKING - ED course Complexity details: reviewed old records, reviewed results, re-evaluated patient, considered differential, d/w patient ED course: 39-year-old male with cannabis hyperemesis is dehydrated and has continued to use. He is administered today Haldol 5 mg intravenously and a liter of saline as well as 30 mg of Toradol. He has improvement in his pain he is still anxious and is administered Ativan intravenously with further improvement.He has evidence of acute kidney injury related to his dehydration and he is administered a second liter of saline.We will send him home with some Haldol for as needed use and we have again requested he discontinue use of cannabis. He admits to having cannabis prior to coming in. Departure - Departure Disposition: 01 Home, Self Care Clinical Impression: Cannabinoid hyperemesis syndrome Condition: Stable Instructions: ED Nausea Vomiting Follow-Up: [facility] [Provider Group] Prescriptions: haloperidoL [Haldol] 2 mg PO Q8H PRN #10 tablet PRN Reason: vomiting Comments: Today again it appears your vomiting is related to excessive use of cannabis. Discontinue all use of cannabis. Your level of dehydration today was enough that it has injured your kidney. My recommendation is to discontinue the cannabis and to use the Haldol as needed if you develop symptoms again. Follow- up with your primary.
== END 2020-01-14 13:34 | disposition home or self-care (01) ==
LOC: EDUNIT# → ED 08:12
DX: E86.0 Dehydration (principal); N17.9 Acute kidney failure, unspecified; F41.9 Anxiety disorder, unspecified; R11.2 Nausea with vomiting, unspecified; I10 Essential (primary) hypertension; E11.9 Type 2 diabetes mellitus without complications; Z79.4 Long term (current) use of insulin
CPT/HCPCS: 36415; 80053; 83605; 83690; 85025; 96361; 96374; 96375; 99283; 99284; J2060

== ENCOUNTER 2020-01-15 09:04 | Outpatient (CLI) | payer BC | END 2020-01-15 09:05 | disposition E | LOC: EMS 09:04 | PROVIDERS: ATTEND Surgery | DX: S01.93XA Puncture wound without foreign body of unspecified part of head, initial encounter; W32.0XXA Accidental handgun discharge, initial encounter; Y92.003 Bedroom of unspecified non-institutional (private) residence as the place of occurrence of the external cause ==